=== PATIENT | male | born 1975 | race American Indian/Alaskan Native ===

== ENCOUNTER 2020-11-30 19:10 | Emergency (ER) | payer OTHER ==
[2020-11-30 20:10] VITALS: BP 126/80
--- NOTE | 2020-11-30 20:52 | Emergency Department Report ---
ED ENT HPI - General Chief complaint: Dental/Oral Stated complaint: LT EAR PAIN 2WEEKS Source: patient Mode of arrival: Ambulatory Limitations: No Limitations - History of Present Illness Initial comments: 45-year-old -[place] male presents to the emergency room complaining of left upper jaw tooth ache for 2 weeks. Patient states now he has pain to his left ear mostly at night. Patient is vaccinated for Covid. He has been taking ibuprofen and Orajel to his mouth. Patient is aware that he has some teeth that need to be taken care of. Patient denies any past medical history currently takes no medications on a daily basis. Patient denies any fever no chills. MD complaint: tooth pain, ear pain Onset/Timin -: week(s) Location: tooth # (15) Severity scale (0 -10): 6 Quality: aching, sharp Consistency: constant Improves with: none Worsens with: none Associated Symptoms: gum swelling, toothache - Related Data Previous Rx's Medication Instructions Recorded Last Taken Type Amoxicillin/Potassium Clav 1 each PO BID 10 Days #20 tablet 11/30/20 Unknown Rx [Augmentin 875-125 Tablet] Ibuprofen [Motrin 800 MG tab] 800 mg PO Q8HR PRN #30 tablet 11/30/20 Unknown Rx Allergies Allergy/AdvReac Type Severity Reaction Status Date / Time No Known Allergies Allergy Unverified 11/30/20 20:16 ED Dental HPI - General Chief complaint: Dental/Oral Stated complaint: LT EAR PAIN 2WEEKS Source: patient Mode of arrival: Ambulatory Limitations: No Limitations - Related Data Previous Rx's Medication Instructions Recorded Last Taken Type Amoxicillin/Potassium Clav 1 each PO BID 10 Days #20 tablet 11/30/20 Unknown Rx [Augmentin 875-125 Tablet] Ibuprofen [Motrin 800 MG tab] 800 mg PO Q8HR PRN #30 tablet 11/30/20 Unknown Rx Allergies Allergy/AdvReac Type Severity Reaction Status Date / Time No Known Allergies Allergy Unverified 11/30/20 20:16 ED Review of Systems ROS: Stated complaint: LT EAR PAIN 2WEEKS Other details as noted in HPI ED Past Medical Hx - Past Medical History Previous Medical History?: No - Surgical History Past Surgical History?: Yes Hx Appendectomy: Yes - Social History Smoking Status: Current Every Day Smoker Substance Use Type: None - Medications Home Medications: Home Medications Medication Instructions Recorded Confirmed Last Taken Type Amoxicillin/Potassium Clav 1 each PO BID 10 Days #20 tablet 11/30/20 Unknown Rx [Augmentin 875-125 Tablet] Ibuprofen [Motrin 800 MG tab] 800 mg PO Q8HR PRN #30 tablet 11/30/20 Unknown Rx ED Physical Exam - General Limitations: No Limitations General appearance: alert, in no apparent distress - Head Head exam: Present: atraumatic, normocephalic - Eye Eye exam: Present: normal appearance - ENT ENT exam: Present: mucous membranes moist - Expanded ENT Exam Expanded Teeth exam: Present: dental caries, gingival enlargement, other (Multiple missing teeth) - Neck Neck exam: Present: normal inspection, full ROM - Respiratory Respiratory exam: Absent: accessory muscle use - Extremities Exam Extremities exam: Present: normal inspection, full ROM - Back Exam Back exam: Present: normal inspection, full ROM - Neurological Exam Neurological exam: Present: alert, oriented X3, normal gait - Psychiatric Psychiatric exam: Present: normal affect, normal mood - Skin Skin exam: Present: warm, dry, intact, normal color. Absent: rash ED Course Vital Signs 11/30/20 20:08 Temperature 98.6 F Pulse Rate 94 H Respiratory 16 Rate Blood Pressure 126/80 O2 Sat by Pulse 96 Oximetry ED Medical Decision Making - Medical Decision Making 45-year-old -[place] male presents to the emergency room complaining of left upper jaw tooth ache for 2 weeks. Patient states now he has pain to his left ear mostly at night. Patient is vaccinated for Covid. He has been taking ibuprofen and Orajel to his mouth. Patient is aware that he has some teeth that need to be taken care of. Patient denies any past medical history currently takes no medications on a daily basis. Patient denies any fever no chills. Patient be treated for dental abscess with Augmentin 875 mg p.o. twice daily for 10 days. Ibuprofen 800 mg p.o. every 8 hours as needed for pain. Follow-up with a dentist. Increase your fluid intake. Critical care attestation.: If time is entered above; I have spent that time in minutes in the direct care of this critically ill patient, excluding procedure time. ED Disposition Clinical Impression: Dental abscess Disposition: TO HOME OR SELFCARE Is pt being admited?: No Does the pt Need Aspirin: No Condition: Stable Instructions: Skin Abscess, [id number], Preventive Dental Care, Adult Additional Instructions: Complete antibiotics as prescribed. Take pain medication as needed. Is very important you follow-up with a dentist if you do not agree to continue to have dental pain and abscesses. Prescriptions: Amoxicillin/Potassium Clav [Augmentin 875-125 Tablet] 1 each PO BID 10 Days #20 tablet Ibuprofen [Motrin 800 MG tab] 800 mg PO Q8HR PRN #30 tablet PRN Reason: Pain , Severe (7-10) Referrals: [facility] [Outside] - 3-5 Days [facility] [Outside] - 3-5 Days Forms: Work/School Release Form(ED) Time of Disposition: 20:52
== END 2020-11-30 21:09 | disposition home or self-care (01) ==
LOC: ED 19:10
DX: K04.7 Periapical abscess without sinus (principal); M27.2 Inflammatory conditions of jaws; Z98.890 Other specified postprocedural states; F17.200 Nicotine dependence, unspecified, uncomplicated
CPT/HCPCS: 99282